=== PATIENT | female | born 1960 | race Caucasian/White ===

== ENCOUNTER 2017-11-27 16:20 | Emergency (ER) | payer OTHER ==
[2017-11-27] MEDS: IBUPROFEN 600 MG TAB PO (19:21)
== END 2017-11-27 20:03 | disposition home or self-care (01) ==
LOC: FTE 16:20
DX: R50.9 Fever, unspecified (principal); R05 Cough; J02.9 Acute pharyngitis, unspecified; R09.81 Nasal congestion; R51 Headache; E11.9 Type 2 diabetes mellitus without complications; I10 Essential (primary) hypertension
CPT/HCPCS: 99284; Z7502